=== PATIENT | male | born 1985 | race Caucasian/White ===

== ENCOUNTER 2016-11-21 17:30 | Emergency (ER) | payer BC ==
[2016-11-21 17:51] VITALS: BP 128/72
--- NOTE | 2016-11-21 18:20 | UC ---
Sergey Burgess Alfonso, scribed for Robert Patel MD on 11/21/16 at 1759 . HPI Febrile Illness - HPI Summary HPI Summary: This patient is a 31 year old M presenting to [facility] with a chief complaint of febrile illness since 3 days ago. He reports a fever of 103.6 at 1530. Symptoms alleviated by ibuprofen temporarily. Patient reports chills, diaphoresis, diarrhea (watery), nausea, body aches, and feeling loopy. Patient denies abdominal pain, vomiting, blood in the stool, rhinorrhea, cough, post nasal drip , back pain, weakness, dizziness, and lightheadedness. He denies recent travels. PMHx of Brugada syndrome. Patients medications reviewed this visit. Patients allergies reviewed this visit. - History of Current Complaint Chief Complaint: UCGeneralIllness Time Seen by Provider: 11/21/16 17:55 Hx Obtained From: Patient Onset/Duration: Started Days Ago - 3, Still Present Timing: Constant Initial Severity: Moderate Current Severity: Moderate Alleviating Factors: Other: - ibuprofen temporarily Associated Signs and Symptoms: Other: - chills, diaphoresis, diarrhea (watery), nausea, body aches, and feeling loopy. Patient denies abdominal pain, vomiting , blood in the stool, rhinorrhea, cough, post nasal drip, back pain, weakness, dizziness, and lightheadedness. - Allergy/Home Medications Allergies/Adverse Reactions: Allergies Allergy/AdvReac Type Severity Reaction Status Date / Time enviromental Allergy Unknown Unknown Uncoded 11/21/16 17:51 Reaction Details Home Medications: Home Medications Fluticasone NASAL * [Flonase *] 1 spray NASAL DAILY 11/21/16 [History Confirmed 11/21/16] Ibuprofen [Advil] 400 mg PO Q6H PRN 11/21/16 [History Confirmed 11/21/16] PMH/Surg Hx/FS Hx/Imm Hx Cardiovascular History: Reports: Hx Auto Implanted Cardiovert Defib - 12/2003 [place] - Brugada syndrome Respiratory History: Reports: Hx Sleep Apnea - compliance issues, Other Respiratory Problems/Disorders - enviromental allergies Sensory History: Reports: Hx Contacts or Glasses Opthamlomology History: Reports: Hx Contacts or Glasses Psychiatric History: Reports: Hx Anxiety - Surgical History Surgery Procedure, Year, and Place: 12/2003 - [place] - ICD placement. 10/2011 - [place] - replacement of fractured ICD lead Infectious Disease History: No Infectious Disease History: Denies: History Other Infectious Disease, Traveled Outside the [place] in Last 30 Days - Family History Known Family History: Positive: Hypertension - BOTH PARENTS, Diabetes - Social History Alcohol Use: None Substance Use Type: Reports: None Smoking Status (MU): Never Smoked Tobacco Review of Systems Constitutional: Fever, Chills, Other - diaphoresis ENT: Other - Negative rhinorrhea, cough, post nasal drip Gastrointestinal: Diarrhea, Nausea, Other - Negative abdominal pain, vomiting, blood in the stool. Musculoskeletal: Myalgia, Other: - Negative back pain Neurological: Other - feeling loopy. ; negative weakness, dizziness, and lightheadedness All Other Systems Reviewed And Are Negative: Yes Physical Exam Triage Information Reviewed: Yes Vital Signs: Initial Vital Signs Temp 100.0 F 11/21/16 17:46 Pulse 83 11/21/16 17:46 Resp 16 11/21/16 17:46 BP 128/72 11/21/16 17:46 Pulse Ox 100 11/21/16 17:46 Vital Signs Reviewed: Yes ENT: Positive: Normal ENT inspection, Hearing grossly normal Dental Exam: Normal Neck exam: Normal Respiratory: Positive: Chest non-tender, Lungs clear Cardiovascular: Positive: RRR, No Murmur Abdomen Description: Positive: Nontender Musculoskeletal: Positive: Strength Intact, ROM Intact Neurological: Positive: Alert, Muscle Tone Normal Psychological: Positive: Normal Response To Family Skin Exam: Normal Course/Dx - Course Course Of Treatment: 31 yr old male with high fevers at home, and copious watery diarrhea of three days. He has myalgias as well. He should have lab work, and further eval given the high fevers with the GI symptoms. He signed out AMA refusal of ambulance to the ER for further eval. - Diagnoses Clinic Provider Diagnoses: diarrhea. high fever Discharge - Discharge Plan Condition: Good Disposition: HOME The documentation as recorded by the Sergey nails Alfonso accurately reflects the service I personally performed and the decisions made by me, Robert Patel MD.
== END 2016-11-21 18:12 | disposition home or self-care (01) ==
LOC: UCEAST 17:30
DX: R19.7 Diarrhea, unspecified (principal); R50.9 Fever, unspecified; M79.1 Myalgia; I49.8 Other specified cardiac arrhythmias; Z95.810 Presence of automatic (implantable) cardiac defibrillator; G47.30 Sleep apnea, unspecified; F41.9 Anxiety disorder, unspecified
CPT/HCPCS: 99212; G0463

== ENCOUNTER → 2016-11-21 18:44 | Emergency (ER) | payer BC ==
[2016-11-21 20:10] VITALS: BP 127/69
== END | disposition left against medical advice (07) ==
LOC: ED 18:44
DX: R50.9 Fever, unspecified (principal); Z53.21 Procedure and treatment not carried out due to patient leaving prior to being seen by health care provider

== ENCOUNTER 2019-01-17 15:21 | Emergency (ER) | payer BC, OTHER ==
[2019-01-17 15:37] VITALS: BP 135/74
--- NOTE | 2019-01-17 15:49 | UC ---
Skin Complaint HPI - HPI Summary HPI Summary: patient was bitten by his own dog 1 hour ago. dog's vaccines are all up to date , dog was provoked by food between him and their other pet dog Tdap is UTD - History of Current Complaint Chief Complaint: UCBiteInjury Time Seen by Provider: 01/17/19 15:41 Stated Complaint: DOG BITE Hx Obtained From: Patient Onset/Duration: Sudden Onset Skin Exposure Onset/Duration: Hours Ago - 1 -2 h Onset Severity: Moderate Current Severity: Mild Pain Intensity: 3 Location: Discrete - R forearm Aggravating Factor(s): Touch Alleviating Factor(s): Nothing Associated Signs & Symptoms: Positive: Tenderness - Allergy/Home Medications Allergies/Adverse Reactions: Allergies Allergy/AdvReac Type Severity Reaction Status Date / Time enviromental Allergy Unknown Unknown Uncoded 01/17/19 15:37 Reaction Details PMH/Surg Hx/FS Hx/Imm Hx Previously Healthy: Yes Cardiovascular History: Pacemaker/ICD, Other - arrythmia Other History Of: Negative For: Hepatitis C - Surgical History Surgical History: Yes Surgery Procedure, Year, and Place: 12/2003 - [place] - ICD placement. 10/2011 - [place] - replacement of fractured ICD lead - Family History Known Family History: Positive: Hypertension - BOTH PARENTS, Diabetes - Social History Occupation: Student Lives: With Family Alcohol Use: None Substance Use Type: None Smoking Status (MU): Never Smoked Tobacco - Immunization History Most Recent Influenza Vaccination: 2014 Most Recent Tetanus Shot: UTD Review of Systems All Other Systems Reviewed And Are Negative: Yes Constitutional: Positive: Negative Skin: Positive: Other - dog bite Respiratory: Positive: Negative Cardiovascular: Positive: Negative Musculoskeletal: Positive: Negative. Negative: Decreased ROM Neurological: Positive: Negative Psychological: Positive: Negative Is Patient Immunocompromised?: No Physical Exam Triage Information Reviewed: Yes Appearance: Well-Appearing, No Pain Distress, Well-Nourished Vital Signs: Initial Vital Signs Temp 98.4 F 01/17/19 15:32 Pulse 60 01/17/19 15:32 Resp 20 01/17/19 15:32 BP 135/74 01/17/19 15:32 Pulse Ox 100 01/17/19 15:32 Vital Signs Reviewed: Yes Respiratory Exam: Normal Cardiovascular Exam: Normal Musculoskeletal Exam: Normal Musculoskeletal: Positive: Strength Intact, ROM Intact Neurological Exam: Normal Psychological Exam: Normal Skin: Positive: Other - dog bite wounds R forearm, elbow, abrasions Course/Dx - Differential Diagnoses - Skin Complaint Differential Diagnoses: Abscess, Cellulitis, Contact Dermatitis - Diagnoses Provider Diagnosis: Dog bite Discharge ED - Sign-Out/Discharge Documenting (check all that apply): Patient Departure All imaging exams completed and their final reports reviewed: No Studies - Discharge Plan Condition: Good Disposition: HOME Prescriptions: Amoxicillin/Clavulanate TAB* [Augmentin TAB 875*] 875 mg PO BID #20 tab Patient Education Materials: Animal Bite (ED) Referrals: Veronica Mccullough MD [Primary Care Provider] - 2 Days (wound recheck) Additional Instructions: apply cold packs to injury for 48 hours start Augmentin antibiotic today and take as directed apply thin layer antibiotic ointment and clean dressing every day use ibuprofen 600-800mg every 6 hours as needed for pain - Billing Disposition and Condition Condition: GOOD Disposition: Home - Attestation Statements Provider Attestation: Per institutional requirements, I have reviewed the chart, however, I was not consulted specifically or made aware of this patient by the midlevel provider. I did not personally evaluate, interact with , or disposition this patient.
== END 2019-01-17 16:09 | disposition home or self-care (01) ==
LOC: UCEAST 15:21
DX: S51.851A Open bite of right forearm, initial encounter (principal); Z91.09 Other allergy status, other than to drugs and biological substances; Z95.0 Presence of cardiac pacemaker; W54.0XXA Bitten by dog, initial encounter; Y92.9 Unspecified place or not applicable
CPT/HCPCS: 99212; G0463

== ENCOUNTER 2019-05-30 13:34 | Emergency (ER) | payer OTHER ==
[2019-05-30 14:52] VITALS: BP 129/75
--- NOTE | 2019-05-30 15:04 | UC ---
General HPI - HPI Summary HPI Summary: Patient with Hx of Brugada and needed a new ICD - this was replaced on 04/14 at [place] with Dr. Muñoz. His incisions having been healing fine without any issues. Yesterday he noticed some pain at mid strenal area. No drainage, crusting. No fever. Otherwise feels fine. Meds; Reviewed - History of Current Complaint Chief Complaint: UCSkin Stated Complaint: NEEDS SURGICAL INCISION CHECKED Time Seen by Provider: 05/30/19 14:51 Pain Intensity: 0 - Allergy/Home Medications Allergies/Adverse Reactions: Allergies Allergy/AdvReac Type Severity Reaction Status Date / Time enviromental Allergy Unknown Unknown Uncoded 05/30/19 14:52 Reaction Details Home Medications: Home Medications Cetirizine HCl [Zyrtec] 10 mg PO DAILY 06/26/12 [History Confirmed 05/30/19] Fluticasone NASAL * [Flonase *] 1 spray NASAL DAILY 11/21/16 [History Confirmed 05/30/19] Ibuprofen [Advil Liqui-Gels] 400 mg PO Q6H PRN 11/21/16 [History Confirmed 05/29] Mupirocin 2% OINT* [Bactroban 2 % Oint*] 1 applic TOPICAL BID #1 tube 05/30/19 [ Rx] PMH/Surg Hx/FS Hx/Imm Hx Previously Healthy: Yes Other History Of: Negative For: Hepatitis C - Surgical History Surgical History: Yes Surgery Procedure, Year, and Place: 12/2003 - [place] - ICD placement. 10/2011 - [place] - replacement of fractured ICD lead. March 2019 - ICD removed and replaced with subcutaneous ICD - Family History Known Family History: Positive: Hypertension - BOTH PARENTS, Diabetes - Social History Alcohol Use: None Substance Use Type: None Smoking Status (MU): Never Smoked Tobacco - Immunization History Most Recent Influenza Vaccination: 2014 Most Recent Tetanus Shot: UTD Review of Systems All Other Systems Reviewed And Are Negative: Yes Physical Exam Triage Information Reviewed: Yes Appearance: Well-Appearing Vital Signs: Initial Vital Signs Temp 99.1 F 05/30/19 14:48 Pulse 61 05/30/19 14:48 Resp 16 05/30/19 14:48 BP 129/75 05/30/19 14:48 Pulse Ox 100 05/30/19 14:48 Vital Signs Reviewed: Yes Eyes: Positive: Conjunctiva Clear Skin Exam: Other - incision over left upper shoulder, dry clean and intact, left mid-axilla clean dry and intact mid strenal region is 2 cm horizontal scar that his minimal erythema, ?small scab over hair follicle. No fluctuance or induration. No pain. Course/Dx - Course Course Of Treatment: This is a 33 yr old with redness around incision site Does not appear inffected. Discuss my concern that he is high risk for serious infection for having hardwire, he understands Looks like a hair follicle irritated or early folliculitis Plan Apply topical antibiotic to affected area 2x/day Monitor area Clean area with soap and water then apply antibiotic ointment If you develop more redness, pain, swelling or a fever - recommend calling doctor Dr. Muñoz for a apt sooner then next week - Diagnoses Provider Diagnosis: Rash Discharge ED - Sign-Out/Discharge Documenting (check all that apply): Patient Departure All imaging exams completed and their final reports reviewed: No Studies - Discharge Plan Condition: Good Disposition: HOME Prescriptions: Mupirocin 2% OINT* [Bactroban 2 % Oint*] 1 applic TOPICAL BID #1 tube Referrals: Veronica Mccullough MD [Primary Care Provider] - Additional Instructions: Apply topical antibiotic to affected area 2x/day Monitor area Clean area with soap and water then apply antibiotic ointment If you develop more redness, pain, swelling or a fever - recommend calling doctor Dr. Muñoz for a apt sooner then next week - Billing Disposition and Condition Condition: GOOD Disposition: Home
== END 2019-05-30 15:15 | disposition home or self-care (01) ==
LOC: UCEAST 13:34
DX: R21 Rash and other nonspecific skin eruption (principal); R07.89 Other chest pain; Z91.09 Other allergy status, other than to drugs and biological substances
CPT/HCPCS: 99212; G0463